=== PATIENT | female | born 1960 | race Caucasian/White ===

== ENCOUNTER → 2018-07-05 | Outpatient (CLI) | payer BC | LOC: BMCIMAGING 15:52 | PROVIDERS: ATTEND Family Medicine | DX: S29.9XXA Unspecified injury of thorax, initial encounter (principal) ==

== ENCOUNTER → 2018-08-08 | Outpatient (CLI) | payer BC | LOC: BMCIMAGING 16:15 | PROVIDERS: ATTEND Family Medicine | DX: J40 Bronchitis, not specified as acute or chronic (principal) ==